=== PATIENT | female | born 1995 ===

== ENCOUNTER 2019-02-22 02:03 | Emergency (ER) | payer SELFPAY ==
[2019-02-22] MEDS ORDERED: ACETAMINOPHEN 500 MG TAB PO ONE (02:37)
[2019-02-22] MEDS ORDERED: ONDANSETRON 4 MG/2 ML INJ IV ONE (02:45)
[2019-02-22] MEDS ORDERED: SODIUM CHLORIDE 0.9% 1000 ML 1,000 ML IV ONE ×2 (02:45→03:44)
[2019-02-22 03:18] LABS: Basophils % (Auto) 0.2 % (0.0-1.8); Eosinophils # (Auto) 0.1 K/mm3 (0.0-0.4); Eosinophils % (Auto) 0.8 % (0.0-4.3); Hematocrit 37.5 % (30.3-42.9); Hemoglobin 12.6 gm/dl (10.1-14.3); Lymphocytes # (Auto) 1.7 K/mm3 (1.2-5.4); Lymphocytes % (Auto) 14.7 % (13.4-35.0); Mean Corpuscular HGB Conc 34 % (30-34); Mean Corpuscular Volume 83 fl (79-97); Monocytes # (Auto) 0.7 K/mm3 (0.0-0.8); Monocytes % (Auto) 5.9 % (0.0-7.3); Platelet Count 356 K/mm3 (140-440); Red Blood Count 4.52 M/mm3 (3.65-5.03); Red Cell Distribution Width 14.3 % (13.2-15.2)
[2019-02-22] MEDS ORDERED: LACTATED RINGERS 1,000 ML IV ONE (03:41)
[2019-02-22 03:54] LABS: Alanine Aminotransferase 13 units/L (7-56); Albumin 3.9 g/dL (3.9-5); BUN/Creatinine Ratio 13; Blood Urea Nitrogen 5 mg/dL (7-17); Calcium 8.9 mg/dL (8.4-10.2); Hemolysis Index 0
--- NOTE | 2019-02-22 04:28 | Ultrasound Report ---
ULTRASOUND OBSTETRIC INDICATION / CLINICAL INFORMATION: Vaginal bleeding. Recent spontaneous TECHNIQUE: Transabdominal. COMPARISON: None available. FINDINGS: No intrauterine is visualized. The uterus measures 17.6 x 7.4 x 7.7 cm. The endometrial str ipe is moderately thickened and heterogeneous measuring 2.4 cm suggestive for recent miscarriage/abor tion. No increased color Doppler flow is seen to suggest retained products of conception ADNEXA: Both ovaries appear within normal limits without cyst or mass. FREE FLUID: None. ADDITIONAL FINDINGS: None. IMPRESSION: 1. Enlarged uterus with thickened complex endometrial stripe characteristic for recent miscarriage. 2. No IUP. Signer Name: Nasim Herrera MD Signed: 02/22/2019 4:24 AM Workstation Name: [id number]
[2019-02-22 05:50] LABS: Basophils % (Auto) 0.2 % (0.0-1.8); Eosinophils % (Auto) 0.1 % (0.0-4.3); Hematocrit 32.2 % (30.3-42.9); Hemoglobin 10.8 gm/dl (10.1-14.3); Lymphocytes # (Auto) 0.9 K/mm3 (1.2-5.4); Lymphocytes % (Auto) 6.1 % (13.4-35.0); Mean Corpuscular HGB Conc 34 % (30-34); Mean Corpuscular Volume 84 fl (79-97); Monocytes # (Auto) 0.7 K/mm3 (0.0-0.8); Monocytes % (Auto) 5.1 % (0.0-7.3); Platelet Count 291 K/mm3 (140-440); Red Blood Count 3.83 M/mm3 (3.65-5.03); Red Cell Distribution Width 14.4 % (13.2-15.2)
[2019-02-22 06:12] VITALS: BP 102/58
--- NOTE | 2019-02-22 06:45 | Emergency Department Report ---
ED Female HPI - General Chief complaint: Vaginal Bleeding Stated complaint: PREG 12WEEKS/VAG BLEEDING Source: patient Mode of arrival: Ambulatory Limitations: Language Barrier - History of Present Illness Initial comments: Patient is a A0 23-year-old female with no past medical history who is approximately 12 weeks gestation and who presents to the ED with complaint of acute onset heavy vaginal bleeding with pelvic pain and nausea and vomiting for the last 1 hour. Patient states that she was laying down asleep when she finally felt a gush of blood with persistent pelvic pain. Patient denies dysuria, urinary frequency and urgency, sexual intercourse recently, dizziness, chest pain, shortness of breath, fever, chills, headache, vaginal discharge and diarrhea. MD Complaint: vaginal bleeding, pelvic pain, other (nausea and vomiting) -: Sudden, hour(s) (1) Location: suprapubic, other (vaginal) Radiation: non-radiating Severity: severe Severity scale (0 -10): 6 Quality: cramping, aching Consistency: constant Improves with: none Worsens with: none Are you Now?: Yes (12 weeks gestation) Associated Symptoms: denies other symptoms, vaginal bleeding, abdominal pain, nausea/vomiting, hematuria. denies: vaginal discharge, fever/chills, headaches, loss of appetite, dysuria, rash, seizure, shortness of breath, syncope, other - Related Data Sexually active: Yes (12 weeks gestation) : 1 Para: 0 A: 0 Previous Rx's Medication Instructions Recorded Last Taken Type Acetaminophen/Codeine [Tylenol 1 tab PO Q6H PRN #12 tab 02/22/19 Unknown Rx /Codeine # 3 tab] Ibuprofen [Motrin] 600 mg PO Q8H PRN #24 tablet 02/22/19 Unknown Rx Ondansetron [Zofran Odt] 4 mg PO Q6HR PRN #21 tab.rapdis 02/22/19 Unknown Rx Allergies Allergy/AdvReac Type Severity Reaction Status Date / Time No Known Allergies Allergy Verified 02/22/19 02:12 ED Review of Systems ROS: Stated complaint: PREG 12WEEKS/VAG BLEEDING Other details as noted in HPI Constitutional: denies: chills, fever Eyes: denies: eye pain, eye discharge, vision change ENT: denies: ear pain, throat pain Respiratory: denies: cough, shortness of breath, wheezing Cardiovascular: denies: chest pain, palpitations Endocrine: no symptoms reported Gastrointestinal: abdominal pain, nausea, vomiting. denies: diarrhea Genitourinary: abnormal menses, other (Heavy vaginal bleeding). denies: urgency, dysuria, discharge Musculoskeletal: denies: back pain, joint swelling, arthralgia Skin: denies: rash, lesions Neurological: denies: headache, weakness, paresthesias Psychiatric: denies: anxiety, depression Hematological/Lymphatic: denies: easy bleeding, easy bruising ED Past Medical Hx - Past Medical History Previous Medical History?: No - Surgical History Past Surgical History?: No - Social History Smoking Status: Never Smoker Substance Use Type: None - Medications Home Medications: Home Medications Medication Instructions Recorded Confirmed Last Taken Type Acetaminophen/Codeine [Tylenol 1 tab PO Q6H PRN #12 tab 02/22/19 Unknown Rx /Codeine # 3 tab] Ibuprofen [Motrin] 600 mg PO Q8H PRN #24 tablet 02/22/19 Unknown Rx Ondansetron [Zofran Odt] 4 mg PO Q6HR PRN #21 tab.rapdis 02/22/19 Unknown Rx ED Physical Exam - General Limitations: Language Barrier General appearance: alert, in no apparent distress - Head Head exam: Present: atraumatic, normocephalic, normal inspection - Eye Eye exam: Present: normal appearance, PERRL, EOMI Pupils: Present: normal accommodation - ENT ENT exam: Present: normal exam, normal orophraynx, mucous membranes moist, TM's normal bilaterally, normal external ear exam - Neck Neck exam: Present: normal inspection, full ROM - Respiratory Respiratory exam: Present: normal lung sounds bilaterally. Absent: respiratory distress, wheezes, chest wall tenderness, accessory muscle use, decreased breath sounds, prolonged expiratory - Cardiovascular Cardiovascular Exam: Present: regular rate, normal rhythm. Absent: systolic murmur, diastolic murmur, rubs, gallop - GI/Abdominal GI/Abdominal exam: Present: soft, tenderness (suprapubic), guarding, normal bowel sounds. 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 Absent: CVA tenderness (L), muscle spasm, paraspinal tenderness - Neurological Exam Neurological exam: Present: alert, oriented X3, CN II-XII intact, normal gait, reflexes normal - Psychiatric Psychiatric exam: Present: normal affect, normal mood - Skin Skin exam: Present: warm, dry, intact, normal color. Absent: rash ED Course Vital Signs 02/22/19 02/22/19 02/22/19 03:41 06:11 06:12 Temperature 99.0 F 98.9 F Pulse Rate 91 H 87 Respiratory 20 20 20 Rate Blood Pressure 98/42 102/58 [Right] O2 Sat by Pulse 100 98 Oximetry 02/22/19 06:20 Temperature Pulse Rate Respiratory 20 Rate Blood Pressure [Right] O2 Sat by Pulse 99 Oximetry - Reevaluation(s) Reevaluation #1: 02/22/19 03:05 This is a 23-year-old female who presented to the ED with vaginal bleeding and pelvic pain for one hour. In the ED, labs were drawn and patient was treated for nausea and vomiting. Patient also received normal saline 1 L IV bolus. Initial Lab test results were reviewed and showed acute leukocytosis of 11,600 [place] [id number]. 02/22/19 06:59 Reevaluation #2: 02/22/19 03:40 Was called into the room when day patient's bleeding got worse and on arrival patient had had a complete miscarriage with the products of conception present on the bed in the pool of blood. The products of conception was successfully delivered with an intact placenta attached. There after the vaginal bleeding improved significantly and stopped. The products of conception worse sent pathology for further evaluation. Patient received a total of 2 L of normal saline and 1 L of lactated Ringer solution IV. Patient's vital signs are stable when rechecked. On reevaluation, patient resting comfortably in the bed talking to the boyfriend. Throughout the ED stay the patient more local medication with the providers and the staff was Icelandic language line. 02/22/19 07:02 ED Medical Decision Making - Lab Data Result diagrams: 02/22/19 05:27 02/22/19 02:38 - Radiology Data Radiology results: report reviewed, image reviewed Findings [facility] [address] [place] [address] Ultrasound Report Signed Patient: LUCY DREW R#: [id number] : 1995 Acct:[id number] Age/Sex: 23 / F ADM Date: 02/22/19 Loc: ED Attending Dr: Ordering Physician: CHEYANNE ALLEN Date of Service: 02/22/19 Procedure(s): US OB <= 14 weeks fetus Accession Number(s): [id number] cc: CHEYANNE ALLEN ULTRASOUND OBSTETRIC INDICATION / CLINICAL INFORMATION: Vaginal bleeding. Recent spontaneous TECHNIQUE: Transabdominal. COMPARISON: None available. FINDINGS: No intrauterine is visualized. The uterus measures 17.6 x 7.4 x 7.7 cm. The endometrial stripe is moderately thickened and heterogeneous measuring 2.4 cm suggestive for recent miscarriage/. No increased color Doppler flow is seen to suggest retained products of conception ADNEXA: Both ovaries appear within normal limits without cyst or mass. FREE FLUID: None. ADDITIONAL FINDINGS: None. IMPRESSION: 1. Enlarged uterus with thickened complex endometrial stripe characteristic for recent miscarriage. 2. No IUP. Signer Name: Nasim Herrera MD Signed: 02/22/2019 4:24 AM Workstation Name: [id number] Transcribed By: TL Dictated By: Nasim Herrera MD Electronically Authenticated By: Nasim Herrera MD Signed Date/Time: 02/22/19423 DD/ 0 TD/TT: - Medical Decision Making This is a 23-year-old female who presented to the ED with vaginal bleeding and pelvic pain for one hour. In the ED, labs were drawn and patient was treated for nausea and vomiting. Patient also received normal saline 1 L IV bolus. Initial Lab test results were reviewed and showed acute leukocytosis of 11,600 [place] [id number]. I was called into the room when the patient's bleeding got worse and on arrival patient had had a complete miscarriage with the products of conception present on the bed in the pool of blood. The products of conception was successfully delivered with an intact placenta attached. Thereafter the heavy vaginal bleeding stopped. The products of conception were sent to pathology for further evaluation. Patient received a total of 2 L of normal saline and 1 L of lactated Ringer solution IV. Patient's vital signs are stable when rechecked. On reevaluation, patient resting comfortably in the bed talking to the boyfriend. Throughout the ED stay the patient more local medication with the providers and the staff was Icelandic language line. The pelvic US shows no intrauterine is visualized. The uterus measures 17.6 x 7.4 x 7.7 cm. The endometrial stripe is moderately thickened and heterogeneous measuring 2.4 cm suggestive for recent miscarriage/. No increased color Doppler flow is seen to suggest retained products of conception. Both ovaries appear within normal limits without cyst or mass. The repeat CBC test shows stable Hemoglobin and Hematocrit levels but an acute leukocytosis of 14,100. Patient was discharged home and advised to maintain a complete pelvic rest and follow up with her P[employer]-Vice President in 3-5 days for reevaluation or return to the ED immediately if symptoms get worse. - Differential Diagnosis Complete miscarriage; Vaginal bleeding; Nausea and vomiting, abdominal pain Critical care attestation.: If time is entered above; I have spent that time in minutes in the direct care of this critically ill patient, excluding procedure time. ED Disposition Clinical Impression: Complete miscarriage, Nausea and vomiting in adult, Abdominal pain during intrauterine , Vaginal bleeding in Disposition: DC-01 TO HOME OR SELFCARE Is pt being admited?: No Does the pt Need Aspirin: No Condition: Stable Instructions: Spontaneous Miscarriage (ED), Bleeding (ED), Acute Nausea and Vomiting (ED) Additional Instructions: MANTENGA UN RADHA PLVICO COMPLETO. TOME MEDICAMENTOS CON ALIMENTOS, MARY ANN MUCHOS LQUIDOS Y SIGA CON WILKINS PARI-HYDROELECTRIC PRODUCTION TECHNICIAN EN 3-5 HASKINS PARA LA REEVALUACIN. REGRESE AL ED INMEDIATAMENTE SI LOS SNTOMAS SE ENFORAN. Prescriptions: Ibuprofen [Motrin] 600 mg PO Q8H PRN #24 tablet PRN Reason: Pain Acetaminophen/Codeine [Tylenol /Codeine # 3 tab] 1 tab PO Q6H PRN #12 tab PRN Reason: Pain , Severe (7-10) Ondansetron [Zofran Odt] 4 mg PO Q6HR PRN #21 tab.rapdis PRN Reason: Nausea Referrals: PRIMARY CARE, [Primary Care Provider] - 3-5 Days Time of Disposition: 07:15 Print Language: ANGOLAN
[2019-02-22 06:54] LABS: Bilirubin,Urine NEG (Negative); Blood,Urine LG (Negative); Color,Urine Yellow (Yellow); Protein,Urine <15 mg/dL mg/dL (Negative); RBC,Urine > 182.0 /HPF (0.0-6.0); Urobilinogen,Urine < 2.0 mg/dL (<2.0)
== END 2019-02-22 08:15 | disposition home or self-care (01) ==
LOC: ED 02:03
DX: O03.9 Complete or unspecified spontaneous abortion without complication (principal)
CPT/HCPCS: 36415; 76801; 80053; 81001; 84702; 84703; 85025; 86900; 86901; 87086; 88307; 96361; 96374; 99284; J2405; J7030; J7120; 88305